=== PATIENT | female | born 1980 | race Caucasian/White ===

== ENCOUNTER 2016-08-22 22:35 | Emergency (ER) | payer OTHER ==
[~2016-08-22] VITALS: Ht 160 cm; Wt 90.0 kg
[~2016-08-22 22:35] MED LIST: PROMETHAZINE HC25 M1 PO; ZITHROMAX Z-PA250 MG PO
[2016-08-22 23:48] LABS: HEMATOCRIT 38.9 % (36.0-46.0); MCH 28.9 PG (29.0-34.0); MCHC 33.2 G/DL (30.0-36.0); MCV 87.2 FL (83-99); MEAN PLAT.VOLUME 12.4 uM^3 (9.5-12.4); PLATELET COUNT 178 K/uL (156-360); RBC DIS.WIDTH-CV 14.9 % (11.8-14.6); RBC DIS.WIDTH-SD 47.5 % (39-53); RED BLOOD COUNT 4.46 M/uL (3.80-5.20); WHITE BLOOD COUNT 8.3 K/uL (4.1-10.2)
[2016-08-22 23:58] LABS: CHLORIDE 108 mEq/L (99-109); POTASSIUM 3.7 mEq/L (3.7-5.4); SODIUM 139 mEq/L (136-147)
[2016-08-23] LABS: GLUCOSE 90 mg/dL (70-99)
[2016-08-23 00:01] LABS: ANION GAP 9 MEQ/L (2-14)
[2016-08-23 00:04] LABS: GFR ESTIMATE (CALCULATED) > 59 mL/min/
[2016-08-23 00:05] LABS: UREA NITROGEN (BUN) 14 mg/dL (9-23)
[2016-08-23 00:14] LABS: QUANTITATIVE HCG < 4.0 MIU/ML
[2016-08-23 00:28] LABS: ADD MIUA? YES; BILIRUBIN NEGATIVE; BLOOD LARGE; COLOR DK YELLOW ((YELLOW)); GLUCOSE (STRIP) NEGATIVE; KETONES TRACE; LEUKOCYTES SMALL; NITRITE NEGATIVE; PH, URINE 5.5 (5-8); PROTEIN (STRIP) NEGATIVE; SPECIFIC GRAVITY 1.028 (1.000-1.030); UROBILINOGEN 0.2 MG/DL (0.2-1.0)
[2016-08-23 00:52] LABS: MUCUS NONE SEEN; RED BLOOD CELLS TNTC /HPF (0-5)
[2016-08-23 00:53] LABS: BACTERIA 1+; EPITHELIAL CELLS 1+; UCUL ADDED? NO
[2016-08-23 00:54] LABS: CASTS NONE SEEN /LPF; CRYSTALS NONE SEEN
[2016-08-23 03:06] VITALS: BP 110/69
== END 2016-08-23 03:07 | disposition home or self-care (01) ==
LOC: EME 22:35
PROVIDERS: Physician Assistant
DX: N93.8 Other specified abnormal uterine and vaginal bleeding (principal); F17.200 Nicotine dependence, unspecified, uncomplicated
CPT/HCPCS: 76856; 80048; 81003; 84702; 85027; 99281; 99285

== ENCOUNTER 2017-08-12 20:53 | Emergency (ER) | payer OTHER ==
[~2017-08-12] VITALS: Ht 160 cm; Wt 86.6 kg
[2017-08-12] MEDS ORDERED: BACTRIM,SEPT1 TABLET PO (22:06)
[2017-08-12 22:31] VITALS: BP 114/94
== END 2017-08-12 22:32 | disposition home or self-care (01) ==
LOC: EME 20:53
DX: L03.012 Cellulitis of left finger (principal); G43.909 Migraine, unspecified, not intractable, without status migrainosus; F17.200 Nicotine dependence, unspecified, uncomplicated
CPT/HCPCS: 99281; 99284; J1885